=== PATIENT | male | born 1935 | race Caucasian/White ===

== ENCOUNTER 2016-09-24 11:00 | Outpatient (RCR) | payer OTHER ==
[~2016-09-24 11:00] MED LIST: ASPIR 8181 MG ORAL; FISH OIL 1,0001 EAC1 ORAL; GLUCOSAMINE &1 EAC2 PO; LUTEIN20 MG PO; MELATONIN 3 MG1 EACH ORAL; SAW PALMETTO450 MG PO; SV FLAXSEED OI1 EACH PO; VITAMIN B12-FO1 EAC1 PO; VITAMIN C500 M1 ORAL; VITAMIN E400 INTLU ORAL
== END 2016-09-29 | disposition home or self-care (01) ==
LOC: PTY 11:00
DX: M17.11 Unilateral primary osteoarthritis, right knee (principal); I25.2 Old myocardial infarction

== ENCOUNTER 2016-10-24 08:52 | Outpatient (RCR) | payer OTHER | END 2016-10-30 | disposition home or self-care (01) | LOC: PTY 08:52 | DX: M17.11 Unilateral primary osteoarthritis, right knee (principal) ==

== ENCOUNTER 2016-11-10 09:30 | Outpatient (RCR) | payer OTHER | END 2016-11-29 | disposition home or self-care (01) | LOC: PTY 09:30 | DX: M17.11 Unilateral primary osteoarthritis, right knee (principal) ==